=== PATIENT | female | born 1960 | race Caucasian/White ===

== ENCOUNTER 2024-11-15 16:10 | Emergency (ER) | payer MEDICARE, SELFPAY ==
[2024-11-15 16:11] VITALS: BP 184/84; PULSE 63; RESP 27; TEMP 36.4; O2SAT 93
--- NOTE | 2024-11-15 16:28 | CT_ITS ---
PROCEDURE: ABDOMEN/PELVIS WITHOUT CONT 11/15/2024 REASON FOR EXAM: VOMITING TECHNIQUE: Abdomen and pelvis CT without intravenous contrast. Noncontrast technique limits evaluation of the abdominal and pelvic viscera. Coronal and Sagittal reconstruction series were provided. One or more dose reduction techniques were used (e.g., Automated exposure control, adjustment of the mA and/or kV according to patient size, use of iterative reconstruction technique). PATIENT PREPARATION: Per protocol ORAL CONTRAST TYPE: None. AMOUNT: mL COMPARISON: None FINDINGS: Lung bases: Unremarkable Liver: Small low attenuating lesion involving the left hepatic lobe, likely representing cysts versus hemangioma. Gallbladder: Unremarkable Spleen: Normal size. Pancreas: Normal size. No surrounding inflammation. Adrenals: Thickening of the left adrenal gland. Right adrenal gland is grossly unremarkable. Kidneys: No urolithiasis. No hydronephrosis. Bladder: Decompressed urinary bladder. Reproductive Organs: Normal uterine size and contour. Ovaries are unremarkable. Bowel: Mild stool burden within the large bowel. No inflammatory changes of the bowel loops. Stomach appears grossly unremarkable. Fluid-filled proximal small bowel within the left upper quadrant, no dilatation or wall thickening or adjacent stranding. Appendix: The appendix is not clearly visualized. Lymph nodes: No lymphadenopathy. Vasculature: Mild diffuse atherosclerotic calcifications are noted. Peritoneum / Retroperitoneum: Unremarkable Bones: Mild anterolisthesis of L4 on L5. Degenerative disc disease at L5-S1. CT/Abdomen/Pelvis without Cont IMPRESSION: Mild stool burden within the large bowel. No inflammatory changes of the bowel loops are demonstrated. Fluid-filled proximal small bowel within the left upper quadrant, no dilatation or wall thickening. This may represent focal area of ileus. OVERALL FINAL ASSESSMENT: . LI-RADS is not meant to be used in patients <18 years or patients with cirrhosi s due to congenital hepatic fibrosis or due to vascular disorders, because these patients have a lower chance of developing HC C. Reading Location: [facility]
[2024-11-15 16:40] LABS: Absolute Lymphocyte Count 1.43 X10^3/uL (0.83-4.51); Absolute Neutrophil Count 3.6 X10^3/uL (2.0-7.7); Basophil# 0.03 X10^3/uL; Basophil% 0.5 % (0-1); Eosinophil# 0.14 X10^3/uL; Eosinophils% 2.3 % (0-5); Hematocrit 30.6 % (37-47); Lymphocyte # 1.43 X10^3/ul (0.83-4.51); Lymphocyte % 23.4 % (19-41); Mean Corp Hgb Conc 32.7 g/dL (32-36); Mean Corpuscular Hgb 29.2 pg (27.0-32.0); Mean Corpuscular Volume 89.2 fL (81-99); Mean Platelet Vol. 8.6 fl (6.2-12.0); Monocyte# 0.86 X10^3/uL; Monocyte% 14.1 % (0-10); NRBC Flagged by Analyzer 0 % (0-5); Neutrophil # 3.62 X10^3/uL (2.7-7.7); Platelet Count 411 K/mm3 (150-450); RBC Distribution Width CV 13.9 % (11.6-14.6); RBC Distribution Width SD 45.7 fl (35.1-43.9); Red Blood Count 3.43 M/mm3 (4.2-5.4); White Blood Count 6.1 K/mm3 (4.4-11.0)
--- NOTE | 2024-11-15 16:50 | EDS_ITS ---
HPI History of Present Illness Chief Complaint: Nausea/Vomiting Informant: patient and family Narrative Narrative: Patient here with daughter who is the DPOA with feeling ill for last 5 days. States with throw up after she eats. However is been nonstop since yesterday. Patient reports daily bowel movements feels urge to have a bowel movement currently. No hematemesis. Reports a few years ago similar symptoms with findings of bowel obstruction managed at [facility]. She states only abdominal surgery is tubal ligation. She states she refused an NG tube and was admitted for a week there. No fever or chills. No urinary symptoms. No cough. She has been using Zofran with no relief. Allergies to Zithromax. Reports abdomen will feel distended however improved with her vomiting. Prior similar symptoms: Yes PFSH PFSH Home Medications ?Medication ?Instructions ?Recorded ?Last Taken ?Type metoclopramide HCl 10 mg tablet 10 mg PO Q6H PRN nause a and 11/15/24 Unknown Rx (Reglan) vomiting #10 tabs nitrofurantoin 100 mg PO Q12 #10 CAPSULES 0 11/15/24 Unknown Rx monohydrate/macrocrystals 100 mg capsule Allergy/AdvReac Type Severity Reaction Status Date / Time azithromycin Allergy Mild Nausea/Vom/ Verified 11/15/24 16:11 Diarrhea Social History Smoking Status: Never smoker ROS ROS ED Constitutional Constitutional ED: Denies chills, fever(s) or sweats ENT ENT ED: Denies sore throat Cardiovascular Cardiovascular: Denies chest pain, leg edema, palpitations or racing heartbeat Respiratory/Chest Respiratory/Chest: Denies cough, dyspnea or dyspnea on exertion Gastrointestinal Gastrointestinal: Reports nausea and vomiting; Denies abdominal pain or diarrhea Genitourinary Genitourinary ED: Denies dysuria, hematuria or urinary frequency Musculoskeletal Musculoskeletal: Denies back pain, extremity pain or neck pain Integumentary Denies rash or wounds Neurologic Neurologic: Denies headache(s), paresthesias or weakness EXAM Physical Exam Const Vital Signs: 11/15/24 16:11 11/15/24 18:10 11/15/24 20:00 Temperature 97.6 F L Temperature Source Temporal Pulse Rate 63 81 77 Respiratory Rate 27 H 18 18 Blood Pressure 184/84 H 134/92 H 148/65 H Blood Pressure Mean 117 106 92 Pulse Ox 93 97 97 Oxygen Delivery Method Room Air Room Air Room Air Positive well nourished and well developed Constitutional Narrative: Patient was vomiting during my examination. General Appearance ED: well developed HEENT Reports moist mucous membranes normocephalic and atraumatic Eyes General Eye ED: Yes normal appearance of both eyes Neck full ROM Chest Wall Chest: Negative for tenderness Resp normal respiratory effort and normal air movement Effort and Inspection: symmetric chest movement; Negative for respiratory distress Cardio regular rate, regular rhythm and no murmurs Peripheral Pulses: pulses 2+ throughout GI non-tender GI Narrative: Nondistended. Palpation: Negative for guarding or rebound tenderness present Extremity normal to inspection General Extremety ED: Negative for edema or tenderness General Extremity: Negative for edema Neuro oriented x3 and no sensory deficits noted Sensorium / Orientation: awake and alert Skin no rashes or lesions noted and no wounds MDM MDM MDM Narrative Medical decision making narrative: Interventions / MDM: Differential diagnosis: Vomiting, ileus, UTI Diagnosis considered but do not suspect: Bowel obstruction however CT negative. My EKG interpretation: N/A Imaging independently reviewed and interpreted by myself: CT abdomen pelvis: No obstruction, small ileus small area left upper quadrant per radiology. External documents reviewed: N/A Test considered but not ordered:N/A ED course: Actively vomiting history of bowel obstruction however does report she has had daily bowel movements. She reports distention improved with vomiting. IV established, abdominal labs. CT scan ordered. Reports Zofran not helping therefore IV Reglan will be ordered. IV fluids started. 2049: Patient CT scan negative for obstruction she was clinically feeling better questionable ileus 1 spot left upper quadrant small bowel. Added a urine. She is drinking fluids on reevaluation clinically feeling better. Urine results 2+ bacteria negative leukocytes negative nitrites. Further discussion with any urine symptoms she states mild discomfort for last couple days. Urine culture sent. Will start her on Macrobid antibiotics. States Reglan helped her better than Zofran at home I will write her prescription with meds to bed with Reglan along with her antibiotics. She clinically tolerating oral fluids in the ED, therefore do not feel she requires hospitalization. I discussed strict return precautions with the patient and daughter. They understand agree with plan. All questions were answered. Re-evaluation: stable Disposition discussed with patient/family/significant other: Patient and daughter Case discussed with consulting clinician: N/A This note was generated with [employer] dictation software. It may contain incorrect words, spelling, and punctuation that were not noted in checking the note before signing. Lab Data Attestation: I reviewed the patient's lab results. Labs: Laboratory Results - last 24 hr 11/15/24 11/15/24 16:27 19:37 WBC 6.1 RBC 3.43 L Hgb 10.0 L Hct 30.6 L MCV 89.2 MCH 29.2 MCHC 32.7 RDW Std Deviation 45.7 H RDW Coeff of Wander 13.9 Plt Count 411 MPV 8.6 Immature Gran % (Auto) 0.700 Neut % (Auto) 59.0 Lymph % (Auto) 23.4 [place] % (Auto) 14.1 H Eos % (Auto) 2.3 Baso % (Auto) 0.5 Absolute Neuts (auto) 3.6 Absolute Lymphs (auto) 1.43 Nucleated RBC % 0 Sodium 136 Potassium 4.1 Chloride 101 Carbon Dioxide 20.2 L Anion Gap 15 BUN 15 Creatinine 1.20 Est GFR (MDRD) Non-Af 50 L BUN/Creatinine Ratio 12.6 Glucose 132 H Calcium 9.0 Total Bilirubin 0.29 AST 31 ALT 19 Alkaline Phosphatase 99 Total Protein 7.0 Albumin 4.3 Globulin 2.7 Albumin/Globulin Ratio 1.6 Lipase 29 Urine Color Yellow Urine Clarity Sl. Cloudy Urine pH 7.0 Ur Specific [place] 1.005 Urine Protein Negative Urine Glucose (UA) Normal Urine Ketones 15 H Urine Occult Blood 10 H Urine Nitrite Negative Urine Bilirubin Negative Urine Urobilinogen Normal Ur Leukocyte Esterase Negative Urine RBC 0-5 SEEN Urine WBC 0-5 SEEN Ur Squamous Epith Cells 0-5 SEEN Urine Bacteria 2+ Urine Mucus 0 SEEN Radiography Diagnostic Testing: Clinical Impression(s) from Imaging Studies Abdomen/Pelvis CT 11/15/24 16:28 IMPRESSION: Mild stool burden within the large bowel. No inflammatory changes of the bowel loops are demonstrated. Fluid-filled proximal small bowel within the left upper quadrant, no dilatation or wall thickening. This may represent focal area of ileus. OVERALL FINAL ASSESSMENT: . LI-RADS is not meant to be used in patients <18 years or patients with cirrhosis due to congenital hepatic fibrosis or due to vascular disorders, because these patients have a lower chance of developing HCC. [facility] Plan Triage Chief Complaint: Nausea/Vomiting ED Provider: Mango Paul Dx/Rx/DC Orders Clinical Impression: Vomiting, Ileus due to infection, UTI (urinary tract infection) Instructions: Ileus, Urinary Tract Infections in Women, ED Diet Vomiting Diarrhea Prescriptions: New nitrofurantoin monohyd/m-cryst 100 mg capsule 100 mg PO Q12 Qty: 10 0RF metoclopramide HCl [Reglan] 10 mg tablet 10 mg PO Q6H PRN (Reason: nausea and vomiting) Qty: 10 0RF Primary Care Provider: Rick Lauren Referrals: Rick Lauren MD [Primary Care Provider] - 3-5 Days Activity Restrictions/Additional Instructions: Workup negative for bowel obstruction. Questionable tiny ileus left upper quadrant. Urine with slight infection. Your labs are stable. You are treated clinically feeling better you are drinking fluids in the ED. Therefore you do not require hospitalization. Liquid diet for next 24 hours. Continue oral fluids for hydration take and finish antibiotic as prescribed. Use Reglan as needed. May also use your Zofran. If you develop worsening symptoms, return to the ED for reevaluation. Print Language: Cymraes Disposition Disposition: Home, Self Care
[2024-11-15 16:52] LABS: ALB/GLOB Ratio 1.6 RATIO (0.9-2.4); AST(SGOT) 31 U/L (<=31); Alanine Aminotransfer ALT/SGPT 19 U/L (<=34); Albumin, Serum 4.3 g/dL (3.4-4.8); Alkaline Phosphatase 99 U/L (35-104); Anion Gap 15 (5-15); BUN 15 mg/dL (4-19); BUN/Creat Ratio 12.6 RATIO (10-20); Carbon Dioxide 20.2 mmol/L (21.0-32.0); Chloride 101 mmol/L (98-108); EST Glomerular Filtration Rate 50 (>60); Globulin 2.7 g/dL (2.2-4.2); Glucose 132 mg/dL (70-99); Lipase 29 U/L (13-75); Potassium 4.1 mmol/L (3.3-5.1); Sodium Level 136 mmol/L (133-145); Total Bilirubin 0.29 mg/dL (0.00-1.30)
[2024-11-15] MEDS: 0.9% Normal Saline (1000mL) 1,000 ML 999 ML IV (17:01)
[2024-11-15] MEDS: Metoclopramide 10 MG/2 ML Vial 5 MG IV (17:02)
[2024-11-15 18:10] VITALS: BP 134/92; PULSE 81; RESP 18; O2SAT 97
[2024-11-15 19:43] LABS: Mucous, Urine 0 SEEN /hpf (<or=2+)
[2024-11-15 19:54] LABS: Color, Urine Yellow (Yellow); Glucose, Dipstick Normal (Normal); Ketone-Dipstick 15 mg/dl (Negative); Leukocyte Esterase-Dipstick Negative /ul (Negative); Nitrite-Dipstick Negative (Negative); Occult Blood-Urine 10 /ul (Negative); Protein-Dipstick Negative (Negative); Specific Gravity, Urine 1.005 (1.002-1.030); Urine Bilirubin Dipstick Negative (Negative); Urine Clarity Sl. Cloudy (Clear); Urine Urobilinogen Normal (Normal)
[2024-11-15 20:00] VITALS: BP 148/65; PULSE 77; RESP 18; O2SAT 97
[2024-11-15 20:21] LABS: Red Blood Cells-Urine 0-5 SEEN /hpf (0-5); Squamous Epithelial Cells - UA 0-5 SEEN /hpf (5-10); White Blood Cells 0-5 SEEN /hpf (0-5)
[2024-11-15 20:22] LABS: Bacteria 2+ /hpf (None Seen)
[2024-11-15] MEDS: Nitrofurantoin Macrocrystals 100 MG Capsule PO (21:00)
[2024-11-15 21:08] VITALS: BP 142/78; PULSE 74; RESP 22; TEMP 36.1; O2SAT 100
== END 2024-11-15 21:11 | disposition home or self-care (01) ==
PROVIDERS: Emergency Provider Emergency Medicine; PCP Family Medicine; Visit Provider Emergency Medicine
DX: R11.2 Nausea with vomiting, unspecified (principal); K56.7 Ileus, unspecified; N39.0 Urinary tract infection, site not specified; Z98.51 Tubal ligation status
CPT/HCPCS: 74176; 80053; 81001; 83690; 85025; 87086; 87088; 96361; 96374; 99283; A4216